=== PATIENT | female | born 1970 | race Caucasian/White ===

== ENCOUNTER 2017-01-02 19:47 | Emergency (ER) | payer OTHER ==
[2017-01-02 20:16] VITALS: BP 119/69; PULSE 80; TEMP 97.6; BMI 25.8
[2017-01-02] MEDS ORDERED: ACETAMINOPHEN 325 MG TABLET (FP) ONE (21:54)
[2017-01-02] MEDS ORDERED: ACETAMINOPHEN 325 MG TABLET (FP) PO ONE (21:59)
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
== END 2017-01-02 22:49 | disposition home or self-care (01) ==
LOC: JERFT 19:47
DX: M62.838 Other muscle spasm (principal); V43.52XA Car driver injured in collision with other type car in traffic accident, initial encounter; Y93.89 Activity, other specified; Y92.410 Unspecified street and highway as the place of occurrence of the external cause
CPT/HCPCS: 70450-TC; 72050-TC; 84703; 99281-25

== ENCOUNTER 2017-12-26 13:20 | Emergency (ER) | payer BC, OTHER ==
[2017-12-26 13:28] VITALS: TEMP 98.1; BMI 25.8
--- NOTE | 2017-12-26 14:04 | PDOC ---
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 Patient states the chest pain ended after about 15 minutes and describes it as a pressure. Denies fevers, chills, nausea, vomiting. Denies history of blood clots , leg swelling, OCPs, recent travel. Pain has now resolved. Denies any prior episodes of this happening before. Given 4 aspirin by EMS. Past History - Past Medical History Allergies/Adverse Reactions: Allergies Allergy/AdvReac Type Severity Reaction Status Date / Time No Known Allergies Allergy Verified 01/02/17 20:10 Home Medications: Ambulatory Orders Cyclobenzaprine HCl [Flexeril 10 mg] 10 mg PO TID PRN #21 tablet 01/02/17 Naproxen [Naprosyn -] 500 mg PO BID #14 tablet 01/02/17 COPD: No DVT: No - Immunization History Immunization Up to Date: Yes - Suicide/Smoking/Psychosocial Hx Smoking History: Never smoked Have you smoked in the past 12 months: No Information on smoking cessation initiated: No Hx Alcohol Use: No Drug/Substance Use Hx: No Substance Use Type: None Review of Systems - Review of Systems Comments:: 12/26/17 14:09 GENERAL/CONSTITUTIONAL: No fever or chills. No weakness. HEAD, EYES, EARS, NOSE AND THROAT: No change in vision. No sore throat. CARDIOVASCULAR: Positive for chest pain and shortness of breath RESPIRATORY: No cough, wheezing, or hemoptysis. GASTROINTESTINAL: No nausea, vomiting, diarrhea or constipation. GENITOURINARY: No dysuria, frequency, or change in urination. MUSCULOSKELETAL: No joint or muscle swelling or pain. No neck or back pain. SKIN: No rash NEUROLOGIC: No headache, vertigo, loss of consciousness, or change in strength/ sensation. HEMATOLOGIC/LYMPHATIC: No anemia, easy bleeding, or history of blood clots. ALLERGIC/IMMUNOLOGIC: No hives or skin allergy. *Physical Exam - Vital Signs Last Vital Signs Temp Pulse Resp BP Pulse Ox 98.1 F 71 20 112/77 100 12/26/17 13:26 12/26/17 13:26 12/26/17 13:26 12/26/17 13:26 12/26/17 13:26 - Physical Exam Comments: 12/26/17 14:10 GENERAL: Awake, alert, and fully oriented, in no acute distress HEAD: No signs of trauma, normocephalic, atraumatic EYES: PERRLA, EOMI, sclera anicteric, conjunctiva clear ENT: Auricles normal inspection, hearing grossly normal, nares patent, oropharynx clear without exudates. Moist mucosa NECK: Normal ROM, supple, no lymphadenopathy, JVD, or masses LUNGS: No distress, speaks full sentences, clear to auscultation bilaterally HEART: Regular rate and rhythm, normal S1 and S2, no murmurs, rubs or gallops, peripheral pulses normal and equal bilaterally. ABDOMEN: Soft, nontender, normoactive bowel sounds. No guarding, no rebound. No masses EXTREMITIES: Normal inspection, Normal range of motion, no edema. No clubbing or cyanosis. NEUROLOGICAL: Cranial nerves II through XII grossly intact. Normal speech, no focal sensorimotor deficits SKIN: Warm, Dry, normal turgor, no rashes or lesions noted. Heart Score/ECG Review - History History: Moderately suspicious - Electrocardiogram EKG: Normal - Age Age: 45-65 - Risk Factors Based on the list above the patient has:: No risk factors known - Troponin Troponin: </= normal limit - Score Heart Score - Total: 2 ED Treatment Course - LABORATORY CBC & Chemistry Diagram: 12/26/17 14:06 12/26/17 14:06 - RADIOLOGY Radiology Studies Ordered: Category Date Time Status CHEST X-RAY PORTABLE* [RAD] Stat Radiology 12/26/17 13:55 Ordered Medical Decision Making - Medical Decision Making 12/26/17 14:10 Patient is 47F with no significant medical history here today complaining of chest pain. Vital signs stable and normal. PERC negative. No risk factors. Patient has good PCP follow up. Will two trop given recent onset, likely discharge. 12/26/17 14:31 Patient reassessed. Patient now has rash and swelling around nose. No sensation of throat swelling or difficulty breathing. No nausea or vomiting. Lungs clear on re-examination. No throat swelling. Patient in no respiratory distress. Will give patient benadryl and pepcid IV. 12/26/17 16:07 Patient reassessed. Patient's rash much improved, feels tired after IV benadryl. Laboratory Tests 12/26/17 12/26/17 12/26/17 14:06 14:06 14:06 WBC 5.9 Hgb 12.9 Plt Count 301 INR 1.04 Creat Clearance w eGFR > 60 Troponin I < 0.02 CBC normal. INR normal. CMP reassuring. Troponin undetectable. Pending 3 hour troponin. 12/26/17 17:26 Second trop negative. Will instruct to follow up with PCP. *DC/Admit/Observation/Transfer Diagnosis at time of Disposition: Chest pain - Discharge Dispostion Disposition: HOME Condition at time of disposition: Good Decision to Admit order: No - Referrals Referrals: Aram Clark MD [Primary Care Provider] - - Patient Instructions Printed Discharge Instructions: DI for Chest Pain Additional Instructions: Please return if you have any new, worsening or concerning symptoms. Please follow up with your primary care physician in the next week. - Post Discharge Activity Forms/Work/School Notes: Back to Work
[2017-12-26] MEDS ORDERED: FAMOTIDINE 20 MG/50 ML IVPB 20 MG/50 ML MG IVPB ONE (14:30)
--- NOTE | 2017-12-26 14:30 | PDOC ---
Attending Attestation - Resident Resident Name: Dominick Anthony - ED Attending Attestation I have performed the following: I have examined & evaluated the patient, The case was reviewed & discussed with the resident, I agree w/resident's findings & plan, Exceptions are as noted - HPI HPI: 12/26/17 14:23 47y F no pmhx presents with complaint of chest pain associated with sob lasting approx 15 minute. 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 the symptoms resovled after approx 15 minutes. Given ASA by EMS, no associated n/v, leg swelling, hemoptysis, fever/chills, abd pain, back pain, headache, dizziness. GENERAL: The patient is awake, alert, and fully oriented, Nontoxic - in no acute distress. HEAD: Normocephalic, atraumatic. EYES: extraocular movements intact, sclera anicteric, conjunctiva clear. ENT: Normal voice, Moist mucous membranes. NECK: Normal range of motion, supple LUNGS: Breath sounds equal, clear to auscultation bilaterally. No wheezes, no rhonchi, no rales. HEART: Regular rate and rhythm, normal S1 and S2 without murmur, rub or gallop. ABDOMEN: Soft, nontender, normoactive bowel sounds. No guarding, no rebound. . No CVA tenderness EXTREMITIES: Normal range of motion, no edema. No clubbing or cyanosis. No cords, erythema, or tenderness. NEUROLOGICAL: No facial assymetry, Normal speech, PSYCH: Normal mood, normal affect. SKIN: Warm, Dry, normal turgor, Differential includes possible GI cause, consider possible ACS but quite atypical, considered but do not think PE due to atypical symtpms will ck labs including trop, ekg, cxr pt placed on electronic device monitor will give asa - Physicial Exam PE: 12/27/17 10:19 see above - Medical Decision Making trop neg x 2 pt asypmtomatic in ED will dc with pmd fu return precautions were discussed
[2017-12-26 15:33] LABS: BASO % 0.4 % (0-2.0); EOS % 0.3 % (0-4.5); HEMATOCRIT 37.1 % (32.4-45.2); HEMOGLOBIN 12.9 GM/dL (10.7-15.3); LYMPH % 45.1 % (8-40); MCH 28.3 pg (25.7-33.7); MCHC 34.7 g/dl (32.0-36.0); MEAN CELL VOLUME 81.4 fl (80-96); MEAN PLT VOLUME 7.8 fl (7.5-11.1); MONO % 5.3 % (3.8-10.2); NEUT % 48.9 % (42.8-82.8); PLATELET COUNT 301 K/MM3 (134-434); RBC 4.56 M/mm3 (3.60-5.2); RDW 12.8 % (11.6-15.6); WHITE BLOOD COUNT 5.9 K/mm3 (4.0-10.0)
[2017-12-26 15:39] LABS: INR 1.04 (0.82-1.09); PROTHROMBIN TIME (PATIENT) 11.8 SEC (9.7-13.0)
[2017-12-26 15:52] LABS: ALBUMIN 3.5 g/dl (3.4-5.0); ANION GAP 8 (8-16); BILIRUBIN,TOTAL 0.4 mg/dL (0.2-1.0); CALCIUM 8.3 mg/dL (8.5-10.1); CHLORIDE 109 mmol/L (98-107); CO2 25 mmol/L (21-32); CREATININE 0.7 mg/dL (0.55-1.02); GLUCOSE,RANDOM 80 mg/dL (74-106); MAGNESIUM 2.2 mg/dL (1.8-2.4); POTASSIUM 3.7 mmol/L (3.5-5.1); SGOT/AST 13 U/L (15-37); SGPT/ALT 19 U/L (12-78); SODIUM 142 mmol/L (136-145); TOT PROT 6.7 g/dl (6.4-8.2)
[2017-12-26 15:56] LABS: ALK PHOS 38 U/L (45-117); BLOOD UREA NITROGEN 8 mg/dL (7-18)
[2017-12-26 17:41] VITALS: BP 114/69; PULSE 80
[2017-12-26] MEDS ORDERED: FAMOTIDINE IV 20 MG/12 ML VIAL IVPUSH SCH (22:00)
--- NOTE | 2017-12-27 10:51 | EKG ---
Test Reason : Blood Pressure : / mmHG Vent. Rate : 072 BPM Atrial Rate : 072 BPM P-R Int : 152 ms QRS Dur : 092 ms QT Int : 378 ms P-R-T Axes : 037 050 019 degrees QTc Int : 413 ms NORMAL SINUS RHYTHM NON-SPECIFIC INTRA-VENTRICULAR CONDUCTION DELAY NO PREVIOUS ECGS AVAILABLE Confirmed by MYRNA LUI MD ([id number]) on 12/27/2017 10:51:03 AM Referred By: Confirmed By:MYRNA LUI MD
== END 2017-12-26 17:41 | disposition home or self-care (01) ==
LOC: JER 13:20
PROC: 3E033GC Introduction of Other Therapeutic Substance into Peripheral Vein, Percutaneous Approach (ICD-10-PCS; principal; 2017-12-26)
DX: R07.9 Chest pain, unspecified (principal); R21 Rash and other nonspecific skin eruption; R22.0 Localized swelling, mass and lump, head
CPT/HCPCS: 36415; 71045-TC-FY; 80053; 82550; 83735; 84484; 84703; 85025; 85610; 93005; 93010; 99284-25

== ENCOUNTER 2018-10-11 09:44 | Emergency (ER) | payer BC ==
[2018-10-11 10:08] VITALS: BP 123/79; PULSE 96; TEMP 97.8; BMI 24.8
--- NOTE | 2018-10-11 10:15 | PDOC ---
History of Present Illness - General Chief Complaint: Rash Stated Complaint: RASH Time Seen by Provider: 10/11/18 09:46 History Source: Patient Exam Limitations: No Limitations - History of Present Illness Initial Comments: 10/11/18 10:03 Pt is a 48yo F with no significant PMH presenting to ED with complaints of a rash. Pt states the rash started yesterday and was mainly on her head and face but then spread to her arms, chest and back and is now spreading to her legs. She endorses chills, sore throat and body aches 2 days ago. When she woke up yesterday morning she noticed a rash on her face which then spread to the chest , back and arms. The rash is painful and itchy. She noticed the rash spreading to her legs today. She recently traveled to [place] from Sep 19-. She noticed a cold sore since her return. She is up to date with all of her vaccinations and states she had the chicken pox when she was a child. 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 She is unaware of any sick contacts at the school but no sick contacts at home. She endorses headache and sore throat. She denies neck stiffness, cough, fevers, body aches, joint pain, urinary symptoms, malaise, history of STDs, genital lesions, n/v/d, abdominal pain. Pt took Benadryl thinking it was an allergic reaction however it did not help. She denies use of new lotions, shampoos, detergents. PMD: Madhavi Clark PMH: none PSH: none Allergies: ASA Social: denies Past History - Past Medical History Allergies/Adverse Reactions: Allergies Allergy/AdvReac Type Severity Reaction Status Date / Time aspirin AdvReac Verified 10/11/18 09:45 Home Medications: Ambulatory Orders Doxycycline Monohydrate [Monodox] 100 mg PO Q12H #14 capsule 10/11/18 COPD: No DVT: No - Immunization History Immunization Up to Date: Yes - Suicide/Smoking/Psychosocial Hx Smoking History: Never smoked Have you smoked in the past 12 months: No Hx Alcohol Use: No Drug/Substance Use Hx: No Substance Use Type: None Review of Systems - Review of Systems Constitutional: Yes: Chills. No: Fever, Malaise, Weakness HEENTM: Yes: Throat Pain. No: Eye Pain, Blurred Vision, Nose Congestion, Mouth Pain Respiratory: No: Cough, Shortness of Breath, Hemoptysis Cardiac (ROS): No: Chest Pain, Edema, Lightheadedness, Palpitations, Syncope, Chest Tightness ABD/GI: No: Constipated, Diarrhea, Nausea, Rectal Bleeding, Vomiting, Abdominal cramping : No: Burning, Dysuria, Frequency, Flank Pain Musculoskeletal: No: Back Pain, Joint Pain, Muscle Pain, Neck Pain Integumentary: Yes: See HPI, Erythema, Lesions, Pruritus, Rash Neurological: Yes: Headache. No: Numbness, Tingling, Tremors, Weakness *Physical Exam - Physical Exam General Appearance: Yes: Nourished, Appropriately Dressed. No: Apparent Distress HEENT: positive: EOMI, STEFANI, TMs Normal, Pharynx Normal, Lesions (No oral lesions). negative: Pale Conjunctivae, Photophobia, Scleral Icterus (R), Scleral Icterus (L), Pharyngeal Erythema, Tonsillar Exudate, Tonsillar Erythema , Nasal Congestion, Thrush Neck: positive: Trachea midline, Supple, Lymphadenopathy (L) (posterior cervical ). negative: Decreased range of motion, Lymphadenopathy (R), Tender lateral Respiratory/Chest: positive: Lungs Clear, Normal Breath Sounds. negative: Crackles, Rales, Rhonchi, Stridor, Wheezing Cardiovascular: positive: Regular Rhythm, Regular Rate, S1, S2. negative: Edema , JVD, Murmur Vascular Pulses: Carotid (R): 2+, Carotid (L): 2+ Gastrointestinal/Abdominal: positive: Normal Bowel Sounds, Soft. negative: Distended, Guarding, Rebound, Tenderness Musculoskeletal: negative: CVA Tenderness Extremity: positive: Normal Capillary Refill. negative: Pedal Edema, Swelling, Calf Tenderness Integumentary: positive: Normal Color, Dry, Warm, Other (multiple diffuse maculopapular rash varying sizes and stages, some with vesicles with clear fluid. Blanching, nontender. on sides of face, scalp, chest, back, upper arms, legs. 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 Pt states the rash started yesterday and was mainly on her head and face but then spread to her arms, chest and back and is now spreading to her legs. She endorses chills, sore throat and body aches 2 days ago. When she woke up yesterday morning she noticed a rash on her face which then spread to the chest , back and arms. The rash is painful and itchy. She noticed the rash spreading to her legs today. She recently traveled to [place] from Sep 19-. She noticed a cold sore since her return. She is up to date with all of her vaccinations and states she had the chicken pox when she was a child. 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 She is unaware of any sick contacts at the school but no sick contacts at home. She endorses headache and sore throat. She denies neck stiffness, cough, fevers, body aches, joint pain, urinary symptoms, malaise, history of STDs, genital lesions, n/v/d, abdominal pain. Vitals: wnl PE: Well Appearing. mutiple diffuse macular/papular rash, blanching. Clear fluid like eruptions, non tender. Posterior cervical LAD. Lesions on scalp, face , upper arm, chest, back, legs. No oral lesions, no palmar lesions. Conjunctival injection. Normal pharynx. Normal TM. Ddx includes but not limited to viral exanthem (measles, chicken pox, Coxackie) , Bacterial infection (strep, staph), malignancy, bug bites, Lyme, RMSF, contact dermatitis, allergic reactions, meningitis Unusual for arthropod mediated infection at this time. Most likely viral exanthem. Low suspicion for meningitis (no meningeal signs, no neck stiffness, no fever) Low suspicion for bug bites given spread and type of lesions. Low suspicion for allergic reaction, contact dermatitis. Possible measles (recent travel, pt works at school, downward spread of rash). -cbc, cmp, Rubeola titers, flu, HIV, CMV, EBV, Emmet -Droplet precautions -CDC, ID consulted. Dr Abarca recommended Zach 10/11/18 11:57 -cbc and cmp wnl, slighly lower WBC (3.9) CDC/Department of health collecting samples as well. Results running. UA pending. 10/11/18 13:44 UA negative. Negative . Flu and HIV negative Pt in no acute distress, normal vitals, normal labs. CDC/[facility] notified. Can be dc home. Given directions and return precautions. *DC/Admit/Observation/Transfer Diagnosis at time of Disposition: Viral exanthem - Discharge Dispostion Disposition: HOME Condition at time of disposition: Good Decision to Admit order: No - Prescriptions Prescriptions: Doxycycline Monohydrate [Monodox] 100 mg PO Q12H #14 capsule - Referrals - Patient Instructions Printed Discharge Instructions: Measles, DI for Viral Syndrome, DI for Rash Additional Instructions: You were seen in the emergency room for a rash. We were concerned about Measles due to your recent travel and the way the rash spread. Specific blood tests are still pending but the blood count levels and the electrolytes were normal. This is most likely due to a virus but in the meantime we recommend that you wear a mask unless told otherwise. A prescription was sent to your pharmacy for an antibiotic, please take as directed. Have a family member pick this up for you. Please stay home until you are contacted by the Department of Health. You should by contacted by . Keep yourself well hydrated and make sure you eat. I would still recommend going to a deckhand. Try to make an appointment as soon as you can once that Measles or any other airborne disease is ruled out. You can take Tylenol or ibuprofen for the pain as needed. You can also take Benadryl if you feel itchy. Come back to the emergency room if you develop a fever, have pain in the chest, start coughing up blood, feel short of breath, you have worsening headache, you have neck stiffness, you have joint pains and body aches, you start vomiting or if any new concerning symptom develops. Thank you - Post Discharge Activity Forms/Work/School Notes: Back to Work
--- NOTE | 2018-10-11 10:46 | PDOC ---
History of Present Illness - General Chief Complaint: Rash Stated Complaint: RASH Time Seen by Provider: 10/11/18 09:46 History Source: Patient Exam Limitations: No Limitations - History of Present Illness Initial Comments: 10/11/18 10:41 48 yo F with no pmhx here with c/o rash. pt states she recently travelled to [place] 2 weeks ago. at that time she experienced a cold sore. she now c/o generalized fatigue, chills myalgia, for 3 days and started develp maculopapular rash yesterday. started on head and scalp and spread down caudally. she states today it does itch and hurt. no involvement of mouth and palms or soles. pt states she has had chickenpox as a child. no n/v/d. no cough does report sore throat 3 days ago. she believes she had all vaccinations as a child. 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 Past History - Past Medical History Allergies/Adverse Reactions: Allergies Allergy/AdvReac Type Severity Reaction Status Date / Time aspirin AdvReac Verified 10/11/18 09:45 Home Medications: Ambulatory Orders NK [No Known Home Medication] 10/11/18 COPD: No DVT: No - Immunization History Immunization Up to Date: Yes - Suicide/Smoking/Psychosocial Hx Smoking History: Never smoked Have you smoked in the past 12 months: No Information on smoking cessation initiated: No Hx Alcohol Use: No Drug/Substance Use Hx: No Substance Use Type: None Review of Systems - Review of Systems Constitutional: Yes: Chills. No: Diaphoresis, Fever HEENTM: Yes: Throat Pain. No: Eye Pain Respiratory: No: Cough Cardiac (ROS): No: Chest Pain, Edema ABD/GI: No: Diarrhea, Nausea, Vomiting Musculoskeletal: Yes: Muscle Pain. No: Back Pain, Joint Pain Integumentary: Yes: Lesions, Rash Neurological: Yes: Headache. No: Numbness Psychiatric: No: Depression All Other Systems: Reviewed and Negative *Physical Exam - Vital Signs Last Vital Signs Temp Pulse Resp BP Pulse Ox 97.8 F 96 H 20 123/79 100 10/11/18 09:44 10/11/18 09:44 10/11/18 09:44 10/11/18 09:44 10/11/18 09:44 - Physical Exam Comments: 10/11/18 10:57 awake alert lungs clear bilaterally heart rrr no mrg abd soft nt nd. eye min conj injection. mouth no oral lesions, pharynx clear no exudate. skin: diffuse maculovesicular rash over face scalp, trunk and arm. scattered lesions, no cropping. or clusters. no scabbed lesions. fluid clear, small 2 - 3 mm. few scatter on trunk . spares palms and soles of feet. single posterior cervical lymphandelpathy noted left neck, marble sized. up to 1 cm. nuero alert oriented x 3. 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 concerns for atypical or modified measles due to distribution and appearance differential includes varicella however pt states has had as a child, [place] however less likley due to spares palms and soles, other viral exanthem. no deep petechia or purpura to suggest can mountain spotted fever however consdired. will send titires ig/ igm for measles, cbv andebv, mono, flu, pt placed on airborne precautions. local [facility] notified. case discussed with DR Abarca, who recommends additionally doxycyclines. 10/11/18 11:42 /case d/w Dr Musa at [facility]. blood to be drawn red top, in addition to urine for pcr and viral swab, held in lab until saturday in/ refrigerator for filler picker by [facility] [address] on 10/13/18 pt to be placed on isolation in home until confirmation of test . out of work until next 10/16/18 . given resp mask to wear. all kids living at home 13, 17 and 19 have been immunized.
[2018-10-11 11:02] LABS: ALBUMIN 3.9 g/dl (3.4-5.0); ALK PHOS 48 U/L (45-117); ANION GAP 7 MMOL/L (8-16); BILIRUBIN,TOTAL 0.2 mg/dl (0.2-1); BLOOD UREA NITROGEN 9 mg/dl (7-18); CALCIUM 9.3 mg/dl (8.5-10); CHLORIDE 103 mmol/L (98-107); CO2 27 mmol/L (21-32); CREATININE 0.7 mg/dl (0.55-1.3); GLUCOSE,RANDOM 92 mg/dl (74-106); POTASSIUM 4.1 mmol/L (3.5-5.1); SGOT/AST 36 U/L (15-37); SGPT/ALT 49 U/L (13-61); SODIUM 137 mmol/L (136-145)
[2018-10-11 11:05] LABS: HEMATOCRIT 43.9 % (32.4-45.2); HEMOGLOBIN 14.3 GM/dl (10.7-15.3); MCH 27.3 pg (25.7-33.7); MCHC 32.7 g/dl (32.0-36.0); MEAN CELL VOLUME 83.5 fl (80-96); MEAN PLT VOLUME 7.9 fl (7.5-11.1); PLATELET COUNT 240 K/MM3 (134-434); RBC 5.26 M/mm3 (3.60-5.2); WHITE BLOOD COUNT 3.9 K/mm3 (4.0-10.8)
--- NOTE | 2018-10-11 11:45 | PDOC ---
Attending Attestation - Resident Resident Name: Anali Webber - ED Attending Attestation I have performed the following: I have examined & evaluated the patient, The case was reviewed & discussed with the resident, I agree w/resident's findings & plan, Exceptions are as noted - HPI HPI: 10/11/18 11:45 48 yo F with no pmhx here with c/o rash. pt states she recently travelled to [place] 2 weeks ago. at that time she experienced a cold sore. she now c/o generalized fatigue, chills myalgia, for 3 days and started develp maculopapular rash yesterday. started on head and scalp and spread down caudally. she states today it does itch and hurt. no involvement of mouth and palms or soles. pt states she has had chickenpox as a child. no n/v/d. no cough does report sore throat 3 days ago. she believes she had all vaccinations as a child. 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 - Physicial Exam PE: 10/11/18 10:57 awake alert lungs clear bilaterally heart rrr no mrg abd soft nt nd. eye min conj injection. mouth no oral lesions, pharynx clear no exudate. skin: diffuse maculovesicular rash over face scalp, trunk and arm. scattered lesions, no cropping. or clusters. no scabbed lesions. fluid clear, small 2 - 3 mm. few scatter on trunk . spares palms and soles of feet. single posterior cervical lymphandelpathy noted left neck, marble sized. up to 1 cm. nuero alert oriented x 3. 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 concerns for atypical or modified measles due to distribution and appearance differential includes varicella however pt states has had as a child, [place] however less likley due to spares palms and soles, other viral exanthem. no deep petechia or purpura to suggest can mountain spotted fever however consdired. will send titires ig/ igm for measles, cbv andebv, mono, flu, pt placed on airborne precautions. local [facility] [facility] notified. case discussed with DR Abarca, who recommends additionally doxycyclines. 10/11/18 11:42 /case d/w Dr Musa at [facility]. 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 out of work until next 10/16/18 . given resp mask to wear. all kids living at home 13, 17 and 19 have been immunized.
[2018-10-11 12:21] LABS: PH,URINE 5.5 (4.5-8); URINE APPEARANCE Clear; URINE BILIRUBIN Negative (NEGATIVE); URINE COLOR Yellow; URINE GLUCOSE (UA) Negative (NEGATIVE); URINE KETONE Negative (NEGATIVE); URINE LEUK ESTERASE Negative (NEGATIVE); URINE NITRITE Negative (NEGATIVE); URINE PROTEIN Negative (NEGATIVE); URINE UROBILINOGEN 0.2 (0.2-1.0)
[2018-10-11] MEDS ORDERED: DOXYCYCLINE HYCLATE 100 MG CAPSULE PO ONE ×2 (12:46→12:48)
[2018-10-11 13:03] LABS: EPI CELLS 1+ /HPF; URINE WBC 0-2 (0-5)
== END 2018-10-11 13:00 | disposition home or self-care (01) ==
LOC: FER 09:44
DX: B09 Unspecified viral infection characterized by skin and mucous membrane lesions (principal)
CPT/HCPCS: 36415; 80053; 81003; 81015; 84703; 85025; 86308; 86644; 86645; 86664; 86765; 87389; 87804; 99282-25

== ENCOUNTER 2019-02-28 16:23 | Emergency (ER) | payer BC ==
[2019-02-28 16:29] VITALS: BP 119/67; PULSE 75; TEMP 97.8; BMI 28.3
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
[2019-02-28 17:21] LABS: EPITHELIAL CELLS MODERATE /hpf
[2019-02-28 17:44] LABS: BASO % 0.5 % (0-2.0); HEMATOCRIT 39.5 % (32.4-45.2); HEMOGLOBIN 13.4 GM/dl (10.7-15.3); MEAN CELL VOLUME 82.6 fl (80-96); MEAN PLT VOLUME 7.9 fl (7.5-11.1); MONO % 6.3 % (3.8-10.2); NEUT % 46.2 % (42.8-82.8); PLATELET COUNT 303 K/MM3 (134-434); RBC 4.78 M/mm3 (3.60-5.2); RDW 12.1 % (11.6-15.6)
[2019-02-28 17:52] LABS: ALBUMIN 4.1 g/dl (3.4-5.0); BILIRUBIN,TOTAL 0.7 mg/dl (0.2-1); CALCIUM 9.1 mg/dl (8.5-10); CREATININE 0.8 mg/dl (0.55-1.3)
== END 2019-02-28 18:02 | disposition home or self-care (01) ==
LOC: FER 16:23
DX: R20.0 Anesthesia of skin (principal)
CPT/HCPCS: 36415; 70450-TC; 80053; 81003; 81015; 81025; 85025; 99283-25

== ENCOUNTER 2023-02-12 05:50 | Day surgery (SDC) | payer BC ==
[2023-02-07 13:13] VITALS: BMI 27.4
[2023-02-12] MEDS ORDERED: SUCCINYLCHOLINE CHLORIDE 200 MG/10 ML SYRINGE ONE (12:11)
[2023-02-12] MEDS ORDERED: PROPOFOL 20 ML ONE (12:11)
[2023-02-12] MEDS ORDERED: MIDAZOLAM HCL 2 MG/2 ML SINGLE DOSE VIAL ONE (12:11)
[2023-02-12] MEDS ORDERED: oxyCODONE HCL 5 MG TABLET PO PRN (12:58)
[2023-02-12] MEDS ORDERED: ONDANSETRON 4 MG/2 ML VIAL IVPUSH PRN (12:58)
[2023-02-12] MEDS ORDERED: ELECTROLYTE-148 SOLN 1,000 ML IV SCH (13:00)
[2023-02-12] MEDS ORDERED: PROMETHAZINE HCL 25 MG/1 ML VIAL IVPB PRN (13:09)
[2023-02-12] MEDS ORDERED: LACTATED RINGERS SOLUTION 1,000 ML IV SCH (13:15)
[2023-02-12 15:58] VITALS: RESP 16
[2023-02-12 16:00] VITALS: BP 106/64; PULSE 67; TEMP 98.4
== END 2023-02-12 15:40 | disposition home or self-care (01) ==
LOC: JASU-SURG 05:50
PROVIDERS: ATTEND Obstetrics & Gynecology
PROC: 0UB98ZZ Excision of Uterus, Via Natural or Artificial Opening Endoscopic (ICD-10-PCS; principal; 2023-02-12 10:30)
DX: N92.6 Irregular menstruation, unspecified (principal); N84.0 Polyp of corpus uteri; D25.0 Submucous leiomyoma of uterus
CPT/HCPCS: 81025; 88305-TC; 94760